=== PATIENT | female | born 1990 | race Native Hawaiian/Other Pacific Islander ===

== ENCOUNTER 2017-07-18 02:15 | Emergency (ER) | payer OTHER ==
[~2017-07-18] VITALS: Ht 165.1 cm; Wt 108.0 kg
[2017-07-18 02:53] LABS: PLATELET COUNT 363 K/uL (152-353)
[2017-07-18 03:12] LABS: POTASSIUM 4.2 mmol/L (3.6-5.2); SODIUM 140 mmol/L (136-145)
[2017-07-18 05:00] VITALS: BP 138/88; TEMP 98.4
== END 2017-07-18 05:01 | disposition home or self-care (01) ==
LOC: ED 02:15
DX: R07.89 Other chest pain (principal); K21.9 Gastro-esophageal reflux disease without esophagitis
CPT/HCPCS: 36415; 80053; 84484; 85027; 99283